=== PATIENT | female | born 1955 ===

== ENCOUNTER 2016-10-02 13:51 | Day surgery (SDC) | payer OTHER ==
[~2016-10-02] VITALS: Ht 154.9 cm; Wt 57.0 kg
[2016-10-02] MEDS ORDERED: LIPITOR 10MG10 MG PO (14:13)
[2016-10-02] MEDS ORDERED: TOPROL XL 50MG50 MG PO (14:14)
[2016-10-02] MEDS ORDERED: HCTZ12.5TAB PO (14:14)
[2016-10-02] MEDS ORDERED: PRILOSEC 20MG20 MG PO (14:15)
[2016-10-02] MEDS ORDERED: ASPIRIN E.C. 8181 MG PO (14:16)
[2016-10-02 14:17] VITALS: BP 131/85; PULSE 91; TEMP 98.5
[2016-10-02 16:00] VITALS: BP 112/62; PULSE 79; TEMP 97
[2016-10-02 16:15] VITALS: BP 106/62; PULSE 72
[2016-10-02 16:30] VITALS: BP 107/59; PULSE 71
[2016-10-02 16:38] VITALS: BP 105/42; PULSE 70
== END 2016-10-02 17:00 | disposition home or self-care (01) ==
LOC: SDCO 13:51
DX: K57.30 Diverticulosis of large intestine without perforation or abscess without bleeding (principal); K21.9 Gastro-esophageal reflux disease without esophagitis; I10 Essential (primary) hypertension; K58.9 Irritable bowel syndrome, unspecified; K59.00 Constipation, unspecified; F17.200 Nicotine dependence, unspecified, uncomplicated
CPT/HCPCS: OP; J2250; J3010; J7030